=== PATIENT | male | born 1935 | race African-American/Black ===

== ENCOUNTER 2020-11-01 11:20 | Inpatient (IN) | payer OTHER, MEDICARE, SELFPAY ==
[~2020-11-01] VITALS: Ht 190.5 cm; Wt 98.0 kg
[2020-11-01 11:22] VITALS: BP_SYST 125
--- NOTE | 2020-11-01 11:25 | NUR ---
HERE FROM HOME FOR GENERAL WEAKNESS. BIB MEDICS. ALERT, CALM, RESP UNLABORED. C/O GENERAL WEAKNESS. DIFFICULTY AMBULATING AND BODY ACHES
[2020-11-01] MEDS ORDERED: INSULIN REGULAR, HUMAN 10 UNITS/0.1 ML INJ IVP ONE (11:30)
--- NOTE | 2020-11-01 11:49 | NUR ---
RECEIVED AND IN ROOM, ERIC TO ASSUME CARE
[2020-11-01 12:26] LABS: BASOPHILS # (AUTO) 0.1 K/uL (0.0-0.2); BASOPHILS % (AUTO) 0.4 % (0.0-2.0); HEMATOCRIT 48.7 % (36-54); HEMOGLOBIN 15.2 g/dL (14.0-18.0); LYMPHOCYTES # (AUTO) 1.2 K/uL (1.0-5.5); LYMPHOCYTES % (AUTO) 6.1 % (20.5-51.5); MEAN CORPUSCULAR HEMOGLOBIN 23 pg (27-31); MEAN CORPUSCULAR HGB CONC 31 % (32-36); MEAN CORPUSCULAR VOLUME 73 fL (79.0-98.0); MONOCYTES # (AUTO) 0.7 K/uL (0.0-1.0); MONOCYTES % (AUTO) 3.6 % (1.7-9.3); NEUTROPHILS # (AUTO) 17.8 K/uL (1.8-7.7); NEUTROPHILS % (AUTO) 89.9 % (40.0-70.0); PLATELET COUNT (AUTO) 265 K/uL (130-430); RED BLOOD CELL COUNT(AUTO) 6.66 MIL/uL (4.2-6.2); RED CELL DISTRIBUTION WIDTH 13.8 % (9.0-15.0); WHITE BLOOD COUNT (AUTO) 19.9 K/uL (4.8-10.8)
--- NOTE | 2020-11-01 12:45 | NUR ---
CALM, ALERT, RESP UNLABORED, SKIN WARM AND DRY. NO DISTRESS.
[2020-11-01] MEDS ORDERED: NS 1000 ML IV.SOLN IV ONE (13:00)
[2020-11-01] MEDS ORDERED: PIPERACILLIN/TAZO 3.38 GM in D5W 50 ML IV ONE (13:00)
[2020-11-01] MEDS ORDERED: VANCOMYCIN HCL 1,000 MG in D5W 250 ML IV ONE (13:00)
[2020-11-01 13:04] LABS: ALANINE AMINOTRANSFERASE 32 U/L (12-78); ALBUMIN 3.6 g/dL (3.4-4.8); ANION GAP 22 (5-15); ASPARTATE AMINOTRANSFERASE 29 U/L (10-37); CALCIUM 8.8 mg/dL (8.4-11.0); CHLORIDE 91 mmol/L (98-107); CREATININE 2.14 mg/dL (0.55-1.30); SODIUM SERUM 126 mmol/L (136-145); TOTAL BILIRUBIN 0.7 mg/dL (0.0-1.0); UREA NITROGEN, BLOOD 68 mg/dL (8-21)
[2020-11-01] MEDS ORDERED: PIPERACILLIN/TAZOBACTAM 3.375 GM/VIAL (ZOSYN) IV ONE ×2 (13:06→18:12)
[2020-11-01] MEDS ORDERED: VANCOMYCIN HCL 1000 MG/VIAL IV ONE (13:06)
[2020-11-01 13:16] LABS: GLUCOSE 786 mg/dL (70-99)
[2020-11-01 13:19] LABS: ACETONE, SERUM MODERATE (NEGATIVE)
--- NOTE | 2020-11-01 13:21 | NUR ---
COVID SWABS COLLECTED AND SENT TO LAB
[2020-11-01] MEDS ORDERED: D5W 1,000 ML IV PRN (14:30)
[2020-11-01] MEDS ORDERED: DEXTROSE 50% JECT 50 ML DISP.SYRIN IVP PRN ×3 (14:30→14:45)
[2020-11-01] MEDS ORDERED: GLUCOSE (DEXTROSE) ORAL GEL -Adults PO PRN (14:30)
[2020-11-01] MEDS ORDERED: INSULIN REGULAR, HUMAN 100 UNITS in NS 99 ML IV PRN ×6 (14:45→17:30)
[2020-11-01] MEDS ORDERED: cefTRIAXone 1 GM in D5W 50 ML IV SCH (15:00)
[2020-11-01] MEDS ORDERED: NACL 0.9% 1,000 ML IV SCH (15:00)
--- NOTE | 2020-11-01 15:26 | NUR ---
CONSULT: PAGED DR VILLARREAL FOR CONSULT REASON FOR CONSULT: DKA
--- NOTE | 2020-11-01 15:37 | NUR ---
CONSULT: CONSULT FOR DR KELLEY SPOKE WITH BRIAN REASON FOR CONSULT: DKA
[2020-11-01] MEDS: NACL 0.9% 1,000 ML IV SCH (15:42)
[2020-11-01 17:53] LABS: BASOPHILS % (AUTO) 0.1 % (0.0-2.0); HEMOGLOBIN 14.2 g/dL (14.0-18.0); LYMPHOCYTES # (AUTO) 1.2 K/uL (1.0-5.5); LYMPHOCYTES % (AUTO) 6.1 % (20.5-51.5); MEAN CORPUSCULAR HEMOGLOBIN 23 pg (27-31); MEAN CORPUSCULAR HGB CONC 32 % (32-36); MONOCYTES # (AUTO) 0.7 K/uL (0.0-1.0); MONOCYTES % (AUTO) 3.5 % (1.7-9.3); NEUTROPHILS # (AUTO) 18.2 K/uL (1.8-7.7); NEUTROPHILS % (AUTO) 90.3 % (40.0-70.0); PLATELET COUNT (AUTO) 286 K/uL (130-430); RED BLOOD CELL COUNT(AUTO) 6.17 MIL/uL (4.2-6.2); RED CELL DISTRIBUTION WIDTH 13.7 % (9.0-15.0); WHITE BLOOD COUNT (AUTO) 20.1 K/uL (4.8-10.8)
[2020-11-01 17:58] LABS: MEAN CORPUSCULAR VOLUME 71 fL (79.0-98.0)
[2020-11-01 18:01] LABS: ALANINE AMINOTRANSFERASE 27 U/L (12-78); ALBUMIN 3.4 g/dL (3.4-4.8); ANION GAP 18 (5-15); ASPARTATE AMINOTRANSFERASE 26 U/L (10-37); CALCIUM 8.2 mg/dL (8.4-11.0); CHLORIDE 108 mmol/L (98-107); CREATININE 1.77 mg/dL (0.55-1.30); PHOSPHORUS 3.1 mg/dL (2.7-4.5); POTASSIUM 4.3 mmol/L (3.5-5.1); SODIUM SERUM 142 mmol/L (136-145); TOTAL BILIRUBIN 0.6 mg/dL (0.0-1.0); UREA NITROGEN, BLOOD 58 mg/dL (8-21)
[2020-11-01 18:04] LABS: GLUCOSE 421 mg/dL (70-99)
[2020-11-01 18:05] LABS: ACETONE, SERUM NEGATIVE (NEGATIVE)
[2020-11-01] MEDS: PIPERACILLIN/TAZO 3.375 GM in NS 50 ML IV SCH ×2 (18:11→23:05)
--- NOTE | 2020-11-01 18:19 | NUR ---
CALM, ALERT, NO DISTRESS, CLEAR MENTATION. FEELING WEAK AND LETHARGIC. RESP UNLABORED
--- NOTE | 2020-11-01 19:45 | NUR ---
BS =366 INSUNIN
--- NOTE | 2020-11-01 19:46 | NUR ---
BS =366 INSULIN @ 4 UNITS/HR
[2020-11-01] MEDS: FAMOTIDINE PF 20 MG/2 ML VIAL IVP SCH (20:29)
--- NOTE | 2020-11-01 20:39 | NUR ---
NI=489, INSULIN TITRATED TO INSULIN 1 UNIT/HR
--- NOTE | 2020-11-01 21:54 | NUR ---
BS =263, INSULIN @ 2 UNITS/HR
[2020-11-01 23:02] LABS: ANION GAP 14 (5-15); CALCIUM 9.1 mg/dL (8.4-11.0); CHLORIDE 109 mmol/L (98-107); CREATININE 1.58 mg/dL (0.55-1.30); GLUCOSE 300 mg/dL (70-99); POTASSIUM 5.3 mmol/L (3.5-5.1); SODIUM SERUM 145 mmol/L (136-145); UREA NITROGEN, BLOOD 55 mg/dL (8-21)
--- NOTE | 2020-11-01 23:30 | NUR ---
DR. SULTANA DOWN GRADED PT TO TELE. FOLLOWING REG INSULIN SLIDING SCALE PROTOCOL
[2020-11-02] MEDS: INSULIN REGULAR, HUMAN 100 UNITS/ML, 10 ML VIAL (humuLIN R) SUBCUT PRN ×8 (00:44→23:06)
--- NOTE | 2020-11-02 00:50 | NUR ---
ACCU CHK : 282, COVERED WITH 6 UNITS REG INSULIN PER SLIDING SCALE
[2020-11-02] MEDS: NACL 0.9% 1,000 ML IV SCH ×3 (01:00→20:43)
--- NOTE | 2020-11-02 02:50 | NUR ---
ACCU CHK : 343, 8 units of Reg Insulin given per sliding scale
[2020-11-02 03:15] LABS: ANION GAP 14 (5-15); CALCIUM 8.7 mg/dL (8.4-11.0); CHLORIDE 111 mmol/L (98-107); CREATININE 1.53 mg/dL (0.55-1.30); GLUCOSE 331 mg/dL (70-99); POTASSIUM 4.9 mmol/L (3.5-5.1); SODIUM SERUM 145 mmol/L (136-145); UREA NITROGEN, BLOOD 50 mg/dL (8-21)
--- NOTE | 2020-11-02 03:34 | NUR ---
Pt VSS no s/s of acute distress Resting on new Hospital bed, pt states feeling better now
--- NOTE | 2020-11-02 05:38 | NUR ---
Accu Chk 381, Reg Insulin coverage per sliding scale
[2020-11-02] MEDS: PIPERACILLIN/TAZO 3.375 GM in NS 50 ML IV SCH ×3 (05:48→18:14)
--- NOTE | 2020-11-02 06:22 | NUR ---
IV antibiotics well tolerated, VSS no s/s of acute distress Resting on Hospital bed Rails up
--- NOTE | 2020-11-02 07:52 | NUR ---
Pt pulled out IV access. Pt not following directions and stated wants to go home.
[2020-11-02 08:34] LABS: ANION GAP 12 (5-15); CALCIUM 9.4 mg/dL (8.4-11.0); CHLORIDE 113 mmol/L (98-107); CREATININE 1.51 mg/dL (0.55-1.30); GLUCOSE 289 mg/dL (70-99); POTASSIUM 4.6 mmol/L (3.5-5.1); SODIUM SERUM 147 mmol/L (136-145); UREA NITROGEN, BLOOD 44 mg/dL (8-21)
[2020-11-02] MEDS: FAMOTIDINE PF 20 MG/2 ML VIAL IVP SCH ×2 (09:00→20:43)
--- NOTE | 2020-11-02 10:00 | NUR ---
Called Dr. Valladares with a consult, spoke with Danna from the exchange
--- NOTE | 2020-11-02 11:40 | NUR ---
PT TAKEN TO THE TELE FLOOR. FACE TO FACE REPORT
--- NOTE | 2020-11-02 11:50 | NUR ---
Called Dr. CoyleS with a consult,spoke with Danna from the exchange
--- NOTE | 2020-11-02 12:00 | NUR ---
ADMISSION NOTE: Received patient from ER via gurney. Patient admitted with diagnosis of DKA . Patient is awake, alert, oriented X 2. Patient oriented to hospital room, call light, toileting, pain management and safety-teach back done. Patient informed that Kimi will be his nurse and that their room number is 104A. Personal belongings checked and Belongings List documented. Call light within reach.
--- NOTE | 2020-11-02 12:10 | NUR ---
INITIAL NOTES: RECEIVED PATIENT FROM ER NURSE PORSHA. PATIENT WAS BROUGHT FROM ER IN A BED. PATIENT IS AWAKE AND ALERT x3 LAYING DOWN IN BED. PATIENT IS TOLERATING OXYGEN ON ROOM AIR WITH NO SIGNS OF DISTRESS OR SHORTNESS OF BREATH NOTED. RECEIVED REPORT THAT PATIENT HAS A DOYLE, WHEN CHECKED THE DOYLE WAS COMPLETELY OUT WITH THE BALLOON STILL INFLATED. PATIENT HAD BLOOD NOTED ON HIS GOWN. CALLED DR. SULTANA AND MADE HIM AWARE. HE STATED TO LEAVE IT OUT AND JUST MONITOR HIM. IV SITE IS PATENT WITH NO SIGNS OF INFILTRATION NOTED. IV FLUIDS TO BE GIVEN. URINAL GIVEN TO PATIENT AT BEDSIDE. PATIENT IN STABLE CONDITION. SAFETY, FALL, AND ASPIRATION PRECAUTIONS ARE IN PLACE. BED LOCKED IN LOWEST POSITION WITH CALL LIGHT IN REACH. WILL CONTINUE TO MONITOR PATIENT FOR ANY CHANGES.
[2020-11-02 12:22] VITALS: BP_SYST 152
[2020-11-02 12:25] LABS: ANION GAP 14 (5-15); CALCIUM 9.4 mg/dL (8.4-11.0); CHLORIDE 114 mmol/L (98-107); CREATININE 1.35 mg/dL (0.55-1.30); GLUCOSE 203 mg/dL (70-99); POTASSIUM 4.6 mmol/L (3.5-5.1); SODIUM SERUM 150 mmol/L (136-145); UREA NITROGEN, BLOOD 43 mg/dL (8-21)
[2020-11-02] MEDS ORDERED: VANCOMYCIN HCL 1 GM/NS PREMIX 250 ML IV ONE (13:00)
[2020-11-02 13:43] LABS: ANION GAP 11 (5-15); CALCIUM 9.1 mg/dL (8.4-11.0); CHLORIDE 114 mmol/L (98-107); CREATININE 1.42 mg/dL (0.55-1.30); GLUCOSE 240 mg/dL (70-99); POTASSIUM 4.4 mmol/L (3.5-5.1); SODIUM SERUM 150 mmol/L (136-145); UREA NITROGEN, BLOOD 42 mg/dL (8-21)
[2020-11-02] MEDS ORDERED: FLUCONAZOLE 200 mg/ NS 100 ML IV ONE (14:00)
--- NOTE | 2020-11-02 14:44 | NUR ---
RN ROUNDS: PATIENT IS AWAKE AND ALERT x4 LAYING DOWN IN BED. PATIENT DENIES ANY PAIN AT THE MOMENT. PATIENT IS TOLERATING OXYGEN ON ROOM AIR WITH NO SIGNS OF DISTRESS OR SHORTNESS OF BREATH NOTED. IV SITE IS PATENT WITH NO SIGNS OF INFILTRATION NOTED. PATIENT IN STABLE CONDITION. WILL CONTINUE TO MONITOR PATIENT FOR ANY CHANGES.
--- NOTE | 2020-11-02 16:48 | NUR ---
RN ROUNDS: PATIENT IS AWAKE AND ALERT x3 LAYING DOWN IN BED. PATIENT IS TOLERATING OXYGEN ON ROOM AIR WITH NO SIGNS OF DISTRESS OR SHORTNESS OF BREATH NOTED. IV SITE IS PATENT WITH NO SIGNS OF INFILTRATION NOTED. PATIENT IN STABLE CONDITION. WILL CONTINUE TO MONITOR PATIENT FOR ANY CHANGES.
[2020-11-02 16:49] VITALS: BP_SYST 156
--- NOTE | 2020-11-02 16:50 | NUR ---
Dietitian Recommendations * Recommend [facility], 2 gm Na kaylee ALANIZ, RD Please refer to Nutrition F/U for details. Addendum: 11/02/20 at [address] Amended: Links added.
--- NOTE | 2020-11-02 18:33 | NUR ---
CLOSING NOTES: PATIENT IS AWAKE AND ALERT x3 SITTING UP IN BED. PATIENT IS TOLERATING OXYGEN ON ROOM AIR WITH NO SIGNS OF DISTRESS OR SHORTNESS OF BREATH NOTED. PATIENT DENIES ANY PAIN AT THE MOMENT. IV SITE IS PATENT WITH NO SIGNS OF INFILTRATION NOTED AND RUNNING FLUIDS ORDERED. PATIENT IN STABLE CONDITION. BED LOCKED IN LOWEST POSITION AND CALL LIGHT IN REACH. SAFETY, FALL, AND ASPIRATION PRECAUTION REMAINED IN PLACE. WILL ENDORSE PATIENT TO ONCOMING MACHINE PLASTER MIXER NURSE.
--- NOTE | 2020-11-02 19:30 | NUR ---
OPENING NOTES: Received report from dayshift nurse. Patient is laying in bed with no s/s of distress or discomfort. He is on room air tolerating well. IV noted on right forearm with dry and intact dressing infusing NS at 100 mL/hr. He does not have any concerns at this time. Ensured all safety precautions. Bed is locked and in the lowest position with alarm on and call light within reach.
[2020-11-02 20:00] VITALS: BP_SYST 140
[2020-11-02 20:40] LABS: ANION GAP 9 (5-15); CHLORIDE 109 mmol/L (98-107); GLUCOSE 281 mg/dL (70-99); SODIUM SERUM 140 mmol/L (136-145); UREA NITROGEN, BLOOD 36 mg/dL (8-21)
--- NOTE | 2020-11-02 20:40 | NUR ---
MEDICATION ADMINISTRATION: Patient is in bed and appears to be in stable condition. Vitals are within normal limits. Administered medications as ordered, tolerate well. Will continue to monitor.
[2020-11-02 20:41] LABS: CREATININE 1.24 mg/dL (0.55-1.30)
--- NOTE | 2020-11-02 21:30 | NUR ---
URINAL ASSISTANCE: Patient requested assistance with urinal. Upon sitting up patient had bleeding from penis. As reported by dayshift nurse, patient had pulled is prasad catheter out with inflated balloon. There was 300 mL urine output mixed with blood. Patient was cleansed and assisted back to bed. He is not exhibiting any s/s of distress or discomfort. Will continue to monitor patient.
[2020-11-03] VITALS: BP_SYST 144
--- NOTE | 2020-11-03 | NUR ---
RN ROUNDS / VITALS: Patient is laying in bed with no s/s of distress or discomfort. Assisted pt to urinal. He had 200 mL's of urine mixed with blood. Will continue to monitor.
[2020-11-03] MEDS: PIPERACILLIN/TAZO 3.375 GM in NS 50 ML IV SCH ×5 (00:57→23:37)
[2020-11-03] MEDS: INSULIN REGULAR, HUMAN 100 UNITS/ML, 10 ML VIAL (humuLIN R) SUBCUT PRN ×6 (00:58→20:59)
--- NOTE | 2020-11-03 01:00 | NUR ---
RN ROUNDS / ACCUCHECK: Patient is resting in bed with unlabored breathing and in stable condition. Accucheck was done at this time. BG was 193 and insulin was administered per sliding scale. Patient tolerated well. Will continue to monitor.
[2020-11-03 01:21] LABS: ANION GAP 11 (5-15); CALCIUM 8.4 mg/dL (8.4-11.0); CHLORIDE 110 mmol/L (98-107); GLUCOSE 178 mg/dL (70-99); POTASSIUM 4.3 mmol/L (3.5-5.1); SODIUM SERUM 144 mmol/L (136-145); UREA NITROGEN, BLOOD 33 mg/dL (8-21)
--- NOTE | 2020-11-03 03:00 | NUR ---
RN ROUNDS / ACCUCHECK: Patient is laying in bed and is currently asleep. I woke patient up for accucheck. Patient was upset to be woken up and asked to be allowed to sleep after accucheck. He states he would prefer if don't wake him up in 2 hours. BG at this time was 150 and no insulin coverage was needed per sliding scale. Will continue to monitor patient and will perform next accucheck at 0600.
[2020-11-03 05:20] LABS: ANION GAP 11 (5-15); CHLORIDE 109 mmol/L (98-107); CREATININE 1.12 mg/dL (0.55-1.30); GLUCOSE 168 mg/dL (70-99); POTASSIUM 3.8 mmol/L (3.5-5.1); SODIUM SERUM 141 mmol/L (136-145); UREA NITROGEN, BLOOD 29 mg/dL (8-21)
[2020-11-03] MEDS: NACL 0.9% 1,000 ML IV SCH (06:29)
--- NOTE | 2020-11-03 07:15 | NUR ---
CLOSING NOTES: Patient is laying in bed with no s/s of distress or discomfort. He has a significant amount of bleeding from penis when he sits up to urinate. I will endorse to dayshift nurse. He is on room air tolerating well. IV on right forearm with dry and intact dressing infusing NS at 100 mL/hr. He does not have any concerns at this time. All needs were met throughout shift. Ensured all safety precautions. Bed is locked and in the lowest position with alarm on and call light within reach. Will endorse to dayshift nurse.
--- NOTE | 2020-11-03 07:25 | NUR ---
OPENING NOTES: RECEIVED PATIENT FROM REPORTING CONSULTANT NURSE. PATIENT IS AWAKE AND ALERT x3 LAYING DOWN IN BED. PATIENT IS TOLERATING OXYGEN ON ROOM AIR WITH NO SIGNS OF DISTRESS OR SHORTNESS OF BREATH NOTED. IV SITE IS PATENT WITH NO SIGNS OF INFILTRATION NOTED AND RUNNING FLUIDS ORDERED. PATIENT'S BED IS SOILED WITH BLOOD. PATIENT TO BE CLEANED AND CHANGED. WILL NOTIFY MD. PATIENT DENIES ANY PAIN AT THE MOMENT. PATIENT IN STABLE CONDITION. SAFETY, FALL, AND ASPIRATION PRECAUTIONS ARE IN PLACE. BED LOCKED IN LOWEST POSITION WITH CALL LIGHT IN REACH. WILL CONTINUE TO MONITOR PATIENT FOR ANY CHANGES.
[2020-11-03 08:08] VITALS: BP_SYST 115
[2020-11-03 08:23] LABS: ANION GAP 10 (5-15); CALCIUM 7.9 mg/dL (8.4-11.0); CHLORIDE 110 mmol/L (98-107); CREATININE 1.14 mg/dL (0.55-1.30); GLUCOSE 189 mg/dL (70-99); POTASSIUM 3.9 mmol/L (3.5-5.1); SODIUM SERUM 142 mmol/L (136-145); UREA NITROGEN, BLOOD 27 mg/dL (8-21)
[2020-11-03] MEDS: FAMOTIDINE PF 20 MG/2 ML VIAL IVP SCH ×2 (08:25→20:56)
--- NOTE | 2020-11-03 08:54 | NUR ---
CONSULTATION PAGED/CALLED Reason for Consultation: [] HEMATURIA Person Who was Notified: [] DR SNEED Consulting Physician: [] DR SNEED Industrial Gas Servicer Helper Specialty: [] UROLOGY Ordering Physician: [] DR SULTANA
[2020-11-03 09:04] LABS: BASOPHILS # (AUTO) 0.1 K/uL (0.0-0.2); BASOPHILS % (AUTO) 0.5 % (0.0-2.0); EOSINOPHILS % (AUTO) 0.1 % (0.0-4.0); HEMATOCRIT 43.1 % (36-54); HEMOGLOBIN 13.3 g/dL (14.0-18.0); LYMPHOCYTES # (AUTO) 2.8 K/uL (1.0-5.5); LYMPHOCYTES % (AUTO) 17.1 % (20.5-51.5); MEAN CORPUSCULAR HEMOGLOBIN 22 pg (27-31); MEAN CORPUSCULAR HGB CONC 31 % (32-36); MEAN CORPUSCULAR VOLUME 72 fL (79.0-98.0); MONOCYTES # (AUTO) 1.3 K/uL (0.0-1.0); MONOCYTES % (AUTO) 7.9 % (1.7-9.3); PLATELET COUNT (AUTO) 233 K/uL (130-430); RED BLOOD CELL COUNT(AUTO) 5.95 MIL/uL (4.2-6.2); RED CELL DISTRIBUTION WIDTH 13.8 % (9.0-15.0); WHITE BLOOD COUNT (AUTO) 16.1 K/uL (4.8-10.8)
[2020-11-03 09:08] LABS: NEUTROPHILS % (AUTO) 74.4 % (40.0-70.0)
--- NOTE | 2020-11-03 10:06 | NUR ---
RN ROUNDS: PATIENT IS AWAKE AND ALERT X3 LAYING DOWN IN BED. PATIENT IS TOLERATING OXYGEN ON ROOM AIR WITH NO SIGNS OF DISTRESS OR SHORTNESS OF BREATH NOTED. IV SITE IS PATENT WITH NO SIGNS OF INFILTRATION NOTED AND RUNNING FLUIDS ORDERED.DENIES ANY PAIN AT THE MOMENT. PATIENT IN STABLE CONDITION. WILL CONTINUE TO MONITOR PATIENT FOR ANY CHANGES.
--- NOTE | 2020-11-03 10:10 | NUR ---
MD ROUNDS/DOYLE: DR. SNEED AT BEDSIDE. INSERTED DOYLE CATHETER. URINE IS CLEAR YELLOW. INFORMED PATIENT NOT TO PULL OUT DOYLE AGAIN. PATIENT VERBALIZED UNDERSTANDING. WILL CONTINUE TO MONITOR.
[2020-11-03 11:43] LABS: BILIRUBIN,URINE NEGATIVE (NEGATIVE); BLOOD, URINE 3+ (NEGATIVE); COLOR,URINE YELLOW (YELLOW); GLUCOSE,URINE NEGATIVE (NEGATIVE); KETONES,URINE TRACE (NEGATIVE); LEUKOCYTE ESTERASE ,URINE TRACE (NEGATIVE); NITRITE, URINE NEGATIVE (NEGATIVE); PH,URINE 5.5 (5.0-8.0); PROTEIN URINE TRACE (NEGATIVE); UROBILINOGEN,URINE 0.2 (0.2-1.0)
[2020-11-03 12:10] VITALS: BP_SYST 140
[2020-11-03 12:17] LABS: CLARITY/URINE SLIGHTLY HAZY (CLEAR)
--- NOTE | 2020-11-03 12:17 | NUR ---
RN ROUNDS: PATIENT IS ASLEEP LAYING IN BED. TOLERATING OXYGEN ON ROOM AIR WITH NO DISTRESS OR SHORTNESS OF BREATH NOTED AT THIS TIME. DENIES ANY PAIN AT THE MOMENT. IV SITE IS PATENT WITH NO SIGNS OF INFILTRATION NOTED AND RUNNING FLUIDS ORDERED. DOYLE CATHETER IN PLACE AND DRAINING BY GRAVITY. PATIENT IN STABLE CONDITION. WILL CONTINUE TO MONITOR PATIENT FOR ANY CHANGES
[2020-11-03 12:18] LABS: BACTERIA,URINE None Seen /HPF (None Seen); RBC,URINE 50-80 /HPF (0-3)
[2020-11-03] MEDS ORDERED: SERTRALINE HCL 50 MG TABLET PO ONE (12:30)
[2020-11-03] MEDS ORDERED: LORazepam 2 MG/ML VIAL IVP PRN (12:30)
--- NOTE | 2020-11-03 14:29 | NUR ---
RN ROUNDS: PATIENT IS ASLEEP LAYING IN BED. TOLERATING OXYGEN ON ROOM AIR WITH NO DISTRESS OR SHORTNESS OF BREATH NOTED AT THIS TIME. DENIES ANY PAIN AT THE MOMENT. IV SITE IS PATENT WITH NO SIGNS OF INFILTRATION NOTED. DOYLE CATHETER IN PLACE AND DRAINING BY GRAVITY. PATIENT IN STABLE CONDITION. WILL CONTINUE TO MONITOR PATIENT FOR ANY CHANGES
--- NOTE | 2020-11-03 16:04 | NUR ---
RN ROUNDS: PATIENT IS ASLEEP LAYING DOWN IN BED. PATIENT IS TOLERATING OXYGEN ON ROOM AIR WITH NO SIGNS OF DISTRESS OR SHORTNESS OF BREATH NOTED. IV SITE IS PATENT WITH NO SIGNS OF INFILTRATION NOTED AND RUNNING FLUIDS ORDERED.DENIES ANY PAIN AT THE MOMENT. PATIENT IN STABLE CONDITION. WILL CONTINUE TO MONITOR PATIENT FOR ANY CHANGES. Addendum: 11/03/20 at 1641 by Anjel Wyatt RN PATIENT AWAKES WITH VERBAL STIMULI.
[2020-11-03 16:13] VITALS: BP_SYST 118
--- NOTE | 2020-11-03 18:43 | NUR ---
CLOSING NOTES: PATIENT IS AWAKE AND ALERT x3 LAYING DOWN IN BED. PATIENT IS TOLERATING OXYGEN ON ROOM AIR WITH NO SIGNS OF DISTRESS OR SHORTNESS OF BREATH NOTED. IV SITE IS PATENT WITH NO SIGNS OF INFILTRATION NOTED. DOYLE CATHETER INTACT AND DRAINING BY GRAVITY. PATIENT DENIES ANY PAIN AT THE MOMENT. PATIENT IN STABLE CONDITION. SAFETY, FALL, AND ASPIRATION PRECAUTIONS REMAINED IN PLACE THROUGHOUT THE SHIFT. BED LOCKED IN LOWEST POSITION WITH CALL LIGHT IN REACH. WILL ENDORSE PATIENT CARE TO ONCOMING OPTICAL MANUFACTURING TECHNICIAN NURSE.
--- NOTE | 2020-11-03 19:30 | NUR ---
INITIAL NOTES: PT IS ON BED RESTING, WAKES UP WHEN ASK QUESTION, PT IS ALERT, AWAKE, ORIENTED X 3, NO COMPLAIN OF PAIN, NO SOB. NOT DISTRESS, STABLE VITAL SIGN, IV LOCK TO RIGHT FOREARM GAUGE 24- SALINE LOCK. NO SKIN ISSUE. EXPLAIN TO PT PLAN OF CARE, PT AGREE AND VERBALIZED UNDERSTANDING. NEEDS ATTENDED, CALL LIGHT IN REACH. LOW BED POSITION AND ALARM. SIDE RAILS UP. WILL MONITOR.
[2020-11-03 20:40] VITALS: BP_SYST 132
--- NOTE | 2020-11-03 22:00 | NUR ---
SLEEPING AT THIS TIME. NO ACUTE DISTRESS, STABLE. WILL MONITOR.
[2020-11-04] VITALS: BP_SYST 132
--- NOTE | 2020-11-04 | NUR ---
SLEEPING, COMFORTABLE. VITAL SIGN STABLE AND WITH IN NORMAL LIMIT. IV MEDICATION GIVEN. SAFETY PRECAUTION IN PLACE. WILL MONITOR.
--- NOTE | 2020-11-04 02:00 | NUR ---
SLEEPING COMFORTABLE, NO DISTRESS. STABLE ON MONITOR. SIDE RAILS UP LOW BED POSITION. WILL MONITOR.
--- NOTE | 2020-11-04 04:08 | NUR ---
SLEEPING COMFORTABLE, NO DISTRESS. STABLE ON MONITOR. SIDE RAILS UP LOW BED POSITION. WILL MONITOR.
--- NOTE | 2020-11-04 06:10 | NUR ---
SLEEPING COMFORTABLE, NO DISTRESS. STABLE ON MONITOR. SIDE RAILS UP LOW BED POSITION. WILL MONITOR.
[2020-11-04] MEDS: PIPERACILLIN/TAZO 3.375 GM in NS 50 ML IV SCH ×3 (06:21→17:05)
[2020-11-04] MEDS: INSULIN REGULAR, HUMAN 100 UNITS/ML, 10 ML VIAL (humuLIN R) SUBCUT PRN ×4 (06:24→21:08)
[2020-11-04 06:25] LABS: BASOPHILS % (AUTO) 0.1 % (0.0-2.0); EOSINOPHILS # (AUTO) 0.1 K/uL (0.0-0.4); EOSINOPHILS % (AUTO) 0.5 % (0.0-4.0); HEMOGLOBIN 11.8 g/dL (14.0-18.0); LYMPHOCYTES # (AUTO) 2.7 K/uL (1.0-5.5); LYMPHOCYTES % (AUTO) 20.7 % (20.5-51.5); MEAN CORPUSCULAR HEMOGLOBIN 23 pg (27-31); MEAN CORPUSCULAR HGB CONC 31 % (32-36); MEAN CORPUSCULAR VOLUME 73 fL (79.0-98.0); MONOCYTES % (AUTO) 7.4 % (1.7-9.3); NEUTROPHILS # (AUTO) 9.2 K/uL (1.8-7.7); PLATELET COUNT (AUTO) 212 K/uL (130-430); RED BLOOD CELL COUNT(AUTO) 5.23 MIL/uL (4.2-6.2); RED CELL DISTRIBUTION WIDTH 13.4 % (9.0-15.0); WHITE BLOOD COUNT (AUTO) 12.9 K/uL (4.8-10.8)
[2020-11-04 06:45] LABS: ANION GAP 10 (5-15); CHLORIDE 106 mmol/L (98-107); CREATININE 0.92 mg/dL (0.55-1.30); GLUCOSE 182 mg/dL (70-99); POTASSIUM 3.9 mmol/L (3.5-5.1); SODIUM SERUM 138 mmol/L (136-145); UREA NITROGEN, BLOOD 20 mg/dL (8-21)
[2020-11-04 06:52] LABS: NEUTROPHILS % (AUTO) 71.3 % (40.0-70.0)
--- NOTE | 2020-11-04 07:25 | NUR ---
OPENING NOTE RECEIVED SBAR FROM NIGHT RN, PATIENT IN BED, RESPIRATIONS EVEN, NON LABORED, BED IN LOW AND LOCKED POSITION, CALL LIGHT WITHIN REACH, BED ALARM ON
[2020-11-04 08:00] VITALS: BP_SYST 122
--- NOTE | 2020-11-04 08:00 | NUR ---
nurse note obtained vs, patient in bed eating breakfast, bed in low and locked position, call light within reach, bed alarm on denies any pain or discomfort
--- NOTE | 2020-11-04 09:00 | NUR ---
nurse note administered medications, bed in low and locked position, call light within reach, bed alarm on.
[2020-11-04] MEDS: FAMOTIDINE PF 20 MG/2 ML VIAL IVP SCH ×2 (09:03→21:00)
[2020-11-04] MEDS: SERTRALINE HCL 50 MG TABLET PO SCH (09:03)
--- NOTE | 2020-11-04 10:21 | NUR ---
Dc Planning: s/w patient and his /Keke: Pt refused dc to halfway, wants to go home with HH nurse. Pt will need IV abx, PT and f/c care. Page dr. Gómez for new order.
--- NOTE | 2020-11-04 10:30 | NUR ---
nurse note assisted patient ambulate to the bathroom, voided, ambulated back to bed, bed in low and locked position, call light within reach bed alarm on
[2020-11-04 11:29] VITALS: BP_SYST 127
--- NOTE | 2020-11-04 12:15 | NUR ---
nurse note obtained bs, administered insulin per sliding scale, hung IVF's as ordered. patient refused lunch, just not hungry. Bed in low and locked position call light within reach, bed alarm on
--- NOTE | 2020-11-04 13:45 | NUR ---
Discharge Planning: DCP faxed referral to [facility] (f [phone] p [phone]), [facility] (f [phone] p [phone]) IV ABX. DANNIEP to follow up Addendum: 11/04/20 at 1633 by Symone Loomis DP Patient was see by PT, DCP faxed PT notes to [facility] (f [phone] p [phone]) for DME FWW. DANNIEP to follow up
--- NOTE | 2020-11-04 14:00 | NUR ---
nurse note patient in bed eyes closed, bed in low and locked position call light within reach, bed alarm on
--- NOTE | 2020-11-04 14:30 | NUR ---
nurse note PT bedside with patient, assisted patient to ambulate to the bathroom, changed linens on bed, PT continued with patient
--- NOTE | 2020-11-04 15:09 | NUR ---
nurse note patient with PT for stair evaluation
[2020-11-04 15:31] VITALS: BP_SYST 100
--- NOTE | 2020-11-04 15:45 | NUR ---
Nurse note patient in bed, respirations even, non labored, bed in low and locked position, call light within reach, bed alarm on
--- NOTE | 2020-11-04 17:13 | NUR ---
nurse note obtained bs, administered insulin per sliding scale, seth king IVF's , patient denies any pain or discomfort
--- NOTE | 2020-11-04 19:15 | NUR ---
CLOSING NOTE PROVIDED SBAR TO NIGHT RN, PATIENT IN BED, RESPIRATIONS EVEN, NON LABORED, BED IN LOW AND LOCKED POSITION, CALL LIGHT WITHIN REACH, BED ALARM ON,DOYLE DRAINING BY GRAVITY. BED ALARM ON
[2020-11-04 20:14] VITALS: BP_SYST 128
[2020-11-05 00:28] VITALS: BP_SYST 106
[2020-11-05] MEDS: PIPERACILLIN/TAZO 3.375 GM in NS 50 ML IV SCH ×3 (01:50→11:57)
[2020-11-05 06:37] LABS: BASOPHILS % (AUTO) 0.3 % (0.0-2.0); EOSINOPHILS % (AUTO) 0.4 % (0.0-4.0); HEMATOCRIT 35.2 % (36-54); HEMOGLOBIN 11.3 g/dL (14.0-18.0); LYMPHOCYTES # (AUTO) 2.2 K/uL (1.0-5.5); LYMPHOCYTES % (AUTO) 22.4 % (20.5-51.5); MEAN CORPUSCULAR HEMOGLOBIN 23 pg (27-31); MEAN CORPUSCULAR HGB CONC 32 % (32-36); MEAN CORPUSCULAR VOLUME 71 fL (79.0-98.0); MONOCYTES % (AUTO) 10.2 % (1.7-9.3); NEUTROPHILS # (AUTO) 6.6 K/uL (1.8-7.7); NEUTROPHILS % (AUTO) 66.7 % (40.0-70.0); PLATELET COUNT (AUTO) 164 K/uL (130-430); RED BLOOD CELL COUNT(AUTO) 4.96 MIL/uL (4.2-6.2); RED CELL DISTRIBUTION WIDTH 13.2 % (9.0-15.0)
[2020-11-05] MEDS: INSULIN REGULAR, HUMAN 100 UNITS/ML, 10 ML VIAL (humuLIN R) SUBCUT PRN ×2 (06:40→12:01)
[2020-11-05 06:52] LABS: ANION GAP 9 (5-15); CHLORIDE 105 mmol/L (98-107); CREATININE 1.01 mg/dL (0.55-1.30); GLUCOSE 163 mg/dL (70-99); POTASSIUM 3.6 mmol/L (3.5-5.1); SODIUM SERUM 137 mmol/L (136-145); UREA NITROGEN, BLOOD 19 mg/dL (8-21)
--- NOTE | 2020-11-05 07:31 | NUR ---
Handoff with day nurse, Dorothy. Antwon Rubio RN
[2020-11-05 07:55] VITALS: BP_SYST 141
--- NOTE | 2020-11-05 08:00 | NUR ---
AM ASSESSMENT. PT SEEN IN BED, ALERT AND ORIENTED, STABLE VITAL SIGNS, NO COMPLAINTS OF BODY DISCOMFORTS, TRAY SERVED FOR BREAKFAST, WILL CONTINUE TO MONITOR.
[2020-11-05] MEDS: FAMOTIDINE PF 20 MG/2 ML VIAL IVP SCH (09:49)
[2020-11-05] MEDS: SERTRALINE HCL 50 MG TABLET PO SCH (09:49)
[2020-11-05 11:26] VITALS: BP_SYST 113
--- NOTE | 2020-11-05 12:01 | NUR ---
GLUCOSE. PAGED DR SULTANA FOR PT'S BLOOD SUGAR TEST 412 MG/DL, WITH 12 UNITS REGULAR INSULIN SQ GIVEN PER SLIDING SCALE. PT HAVING HIS LUNCH AT THIS TIME.
--- NOTE | 2020-11-05 15:00 | NUR ---
DISCHARGE INSTRUCTIONS. DOYLE CARE INSTRUCTION GIVEN, PT STATED "I KNOW THAT ALREADY", HE WENT TO THE BATHROOM HIMSELF AND EMPTIED OUT THE DRAINAGE BAG. PT TO MAKE A FOLLOW-UP APPOINTMENT WITH HIS PMD, AND WITH DR SNEED, UROLOGIST. HE SAID THAT HE WILL CHANGE HIS PRIMARY DOCTOR.
[2020-11-05 15:04] VITALS: BP_SYST 114
--- NOTE | 2020-11-05 16:36 | NUR ---
DISCHARGE. WHEELED PT OUT. IV REMOVED. LEG BAG, URINAL PROVIDED. PT'S SPOUSE QUINTIN WAITING AT THE LOBBY OF THE HOSPITAL TO TAKE PT HOME.
--- NOTE | 2020-11-07 11:32 | NUR ---
PHYSICAL THERAPY CO-SIGN The Physical Therapy Progress Notes documented by Clinical Biostatistics Director have been reviewed. Reviewed/Co-Signed by: Ned Pringle Documentation Done by: LASHAE JO PTA Addendum: 11/07/20 at 1133 by Nde Pringle PT Amended: Links added.
--- NOTE | 2020-11-12 14:16 | NUR ---
Discharge Follow Up Phone Call Phoned the number listed for patient, . It was a nonworking number. Phoned patient's , Keke. She stated that patient was not doing well. He was taken to [facility], but was not admitted. She stated she did not know that patient had been put back on insulin so his blood sugar spiked again. They are working with his PCP to figure it out. [facility] has been to the home. She was anxious to end the call.
== END 2020-11-05 16:40 | disposition home health service (06) | DRG 871 ==
LOC: SED 11:20 → SIC 14:24 → STU 23:50
PROVIDERS: ADMIT General Practice; ATTEND General Practice
DX: A41.9 Sepsis, unspecified organism (principal); E11.10 Type 2 diabetes mellitus with ketoacidosis without coma; N17.0 Acute kidney failure with tubular necrosis; J18.9 Pneumonia, unspecified organism; E87.1 Hypo-osmolality and hyponatremia; N39.0 Urinary tract infection, site not specified; E87.5 Hyperkalemia; I10 Essential (primary) hypertension; F32.9 Major depressive disorder, single episode, unspecified; Z20.828 Contact with and (suspected) exposure to other viral communicable diseases; F41.9 Anxiety disorder, unspecified; R45.850 Homicidal ideations; Z79.899 Other long term (current) drug therapy
CPT/HCPCS: 36415; 36600; 71045; 76700-TC; 80048; 80053; 81000-TC; 82009-TC; 82803-TC; 82962; 83605; 83735-TC; 83880; 84100-TC; 84484; 85025; 87040-TC; 87086; 93005; 96365; 96366; 96368; 96375; 97110-GP; 97116-GP; 97163; 99285; G0378; J1450; J1815; J2543; J3370; J3490

== ENCOUNTER 2023-10-11 22:07 | Emergency (ER) | payer OTHER, MEDICARE ==
[~2023-10-11] VITALS: Ht 182.9 cm; Wt 97.5 kg
[2023-10-11 22:36] VITALS: BP_SYST 114; PULSE 75; RESP 16; TEMP 97.2; O2SAT 100
[2023-10-11 23:55] LABS: BASOPHILS # (AUTO) 0.1 K/uL (0.0-0.2); BASOPHILS % (AUTO) 0.6 % (0.0-2.0); EOSINOPHILS % (AUTO) 0.1 % (0.0-4.0); HEMATOCRIT 45.4 % (36-54); HEMOGLOBIN 14.3 g/dL (14.0-18.0); LYMPHOCYTES # (AUTO) 2.2 K/uL (1.0-5.5); LYMPHOCYTES % (AUTO) 20.2 % (20.5-51.5); MEAN CORPUSCULAR HEMOGLOBIN 23 pg (27-31); MEAN CORPUSCULAR HGB CONC 32 % (32-36); MEAN CORPUSCULAR VOLUME 72 fL (79.0-98.0); MONOCYTES # (AUTO) 0.7 K/uL (0.0-1.0); MONOCYTES % (AUTO) 6.3 % (1.7-9.3); NEUTROPHILS % (AUTO) 72.8 % (40.0-70.0); PLATELET COUNT (AUTO) 217 K/uL (130-430); RED BLOOD CELL COUNT(AUTO) 6.32 MIL/uL (4.2-6.2); RED CELL DISTRIBUTION WIDTH 13.7 % (9.0-15.0)
[2023-10-12 00:25] LABS: ALANINE AMINOTRANSFERASE 41 U/L (12-78); ANION GAP 9 (5-15); ASPARTATE AMINOTRANSFERASE 16 U/L (10-37); CALCIUM 9.6 mg/dL (8.4-11.0); CARBON DIOXIDE 27 mmol/L (23-29); CHLORIDE 95 mmol/L (98-107); CREATININE 1.71 mg/dL (0.55-1.30); POTASSIUM 5.3 mmol/L (3.5-5.1); SODIUM SERUM 131 mmol/L (136-145); TOTAL BILIRUBIN 0.6 mg/dL (0.0-1.0); TOTAL PROTEIN, SERUM 7.8 g/dL (6.4-8.3); UREA NITROGEN, BLOOD 27 mg/dL (8-21)
[2023-10-12 00:29] LABS: GLUCOSE 541 mg/dL (74-106)
[2023-10-12] MEDS ORDERED: NACL 0.9% 500 ML IV ONE (00:30)
[2023-10-12 01:29] LABS: BILIRUBIN,URINE NEGATIVE (NEGATIVE); BLOOD, URINE NEGATIVE (NEGATIVE); CLARITY/URINE CLEAR (CLEAR); COLOR,URINE YELLOW (YELLOW); GLUCOSE,URINE 3+ (NEGATIVE); KETONES,URINE NEGATIVE (NEGATIVE); LEUKOCYTE ESTERASE ,URINE NEGATIVE (NEGATIVE); NITRITE, URINE NEGATIVE (NEGATIVE); PROTEIN URINE NEGATIVE (NEGATIVE); UROBILINOGEN,URINE 0.2 (0.2-1.0)
[2023-10-12] MEDS ORDERED: INSULIN REGULAR, HUMAN 10 UNITS/0.1 ML, 3 ML VIAL IVP ONE (01:30)
[2023-10-12 05:06] VITALS: BP_SYST 124; PULSE 74; RESP 16; TEMP 98; O2SAT 98
== END 2023-10-12 05:07 | disposition home or self-care (01) ==
LOC: SED 22:07
DX: E11.65 Type 2 diabetes mellitus with hyperglycemia (principal); I10 Essential (primary) hypertension; Z79.899 Other long term (current) drug therapy
CPT/HCPCS: 99285; 80053; 81001; 82962; 85025; 36415; 81003; 96374; 96361; 80048; J7030; J1815